=== PATIENT | male | born 1935 | race Caucasian/White ===

== ENCOUNTER 2016-09-08 11:24 | Emergency (ER) | payer OTHER ==
[~2016-09-08] VITALS: Ht 167.6 cm; Wt 113.7 kg
[~2016-09-08 11:24] MED LIST: AMIODARONE HCL200 MG PO; CALCITRIOL0.25 MCG PO; CARDIZEM CD120 MG PO; CARVEDILOL25 MG PO; CLOPIDOGREL75 MG PO; CO Q-10100 MG PO; COZAAR25 MG PO; DAILY VALUE1 EACH PO; DAILY VITE1 EAC1 PO; DIGOXIN125 MCG PO; ELIQUIS2.5 MG PO; ELIQUIS5 MG PO; FISH OIL 1,0001 EAC7 PO; FUROSEMIDE20 MG PO; HUMALOG100 UNIT/1 SC; HUMULIN 70100 UNIT/2 SC; KLOR-CON 1010 ME1 PO; LANTUS 3 M100 UNITS1 SC; LIVALO2 MG PO; LO-DOSE ASPIRIN81 M1 PO; LOSARTAN POTASS50 MG PO; NITROSTAT0.4 MG SL; OLIVE LEAF EXT250 MG PO; OMEGA 3 500 SO1 EACH PO; VISINE A.C300 DROP/1 BOTH EYES; VISINE15 ML BOTH EYES
[2016-09-08 12:25] LABS: HEMATOCRIT 41.9 % (38.0-50.0); MCH 32.2 PG (29.0-34.0); MCHC 33.7 G/DL (30.0-36.0); MCV 95.7 FL (86-99); MEAN PLAT.VOLUME 9.3 uM^3 (9.0-12.4); RBC DIS.WIDTH-CV 12.3 % (11.8-14.6); RBC DIS.WIDTH-SD 43.4 % (39-53); RED BLOOD COUNT 4.38 M/uL (4.00-5.50); WHITE BLOOD COUNT 5.6 K/uL (4.1-10.2)
[2016-09-08 12:30] LABS: PLATELET COUNT 118 K/uL (156-360)
[2016-09-08 12:42] LABS: CHLORIDE 110 mEq/L (99-109); POTASSIUM 4.3 mEq/L (3.7-5.4); SODIUM 141 mEq/L (136-147)
[2016-09-08 12:44] LABS: GLUCOSE 123 mg/dL (70-99)
[2016-09-08 12:45] LABS: ANION GAP 6 MEQ/L (2-14)
[2016-09-08 12:46] LABS: TOTAL BILIRUBIN 0.6 mg/dL (0.0-1.0)
[2016-09-08 12:47] LABS: ALKALINE PHOSPHATASE 43 IU/L (3-129)
[2016-09-08 12:48] LABS: GFR ESTIMATE (CALCULATED) 25 mL/min/
[2016-09-08 12:49] LABS: UREA NITROGEN (BUN) 46 mg/dL (9-23)
[2016-09-08 12:52] LABS: TROP-I INTERPRETATION NEGATIVE; TROPONIN-I 0.02 ng/mL (0.0-0.30)
[2016-09-08 13:09] LABS: ADD MIUA? YES; BILIRUBIN NEGATIVE; BLOOD NEGATIVE; COLOR YELLOW ((YELLOW)); GLUCOSE (STRIP) 50; KETONES NEGATIVE; LEUKOCYTES NEGATIVE; NITRITE NEGATIVE; PROTEIN (STRIP) >=500; SPECIFIC GRAVITY 1.022 (1.000-1.030); UROBILINOGEN 0.2 MG/DL (0.2-1.0)
[2016-09-08 13:13] LABS: BACTERIA RARE /HPF; EPITHELIAL CELLS NONE SEEN /HPF; HYALINE CASTS 0-5 /LPF; MUCUS TRACE /LPF; RED BLOOD CELLS 0-5 /HPF (0-5); WHITE BLOOD CELLS 0-5 /HPF (0-5)
[2016-09-08 14:15] VITALS: BP 148/67
== END 2016-09-08 14:16 | disposition home or self-care (01) ==
LOC: EME 11:24
PROVIDERS: Nurse Practitioner Family
DX: J06.9 Acute upper respiratory infection, unspecified (principal); R79.89 Other specified abnormal findings of blood chemistry; I10 Essential (primary) hypertension; E11.9 Type 2 diabetes mellitus without complications; Z79.4 Long term (current) use of insulin; E78.5 Hyperlipidemia, unspecified; I48.91 Unspecified atrial fibrillation; Z79.01 Long term (current) use of anticoagulants; I25.2 Old myocardial infarction; Z95.1 Presence of aortocoronary bypass graft; Z87.442 Personal history of urinary calculi; Z79.02 Long term (current) use of antithrombotics/antiplatelets
CPT/HCPCS: 71020; 80053; 81003; 83880; 84484; 85027; 93005; 99281; 99284

== ENCOUNTER 2017-07-14 03:50 | Emergency (ER) | payer OTHER ==
[~2017-07-14] VITALS: Ht 167.6 cm; Wt 115.4 kg
[2017-07-14 04:46] LABS: HEMATOCRIT 41.6 % (38.0-50.0); MCHC 33.7 G/DL (30.0-36.0); PLATELET COUNT 143 K/uL (156-360); RBC DIS.WIDTH-CV 11.9 % (11.8-14.6); RBC DIS.WIDTH-SD 41.9 % (39-53); RED BLOOD COUNT 4.38 M/uL (4.00-5.50); WHITE BLOOD COUNT 7.1 K/uL (4.1-10.2)
[2017-07-14 04:52] LABS: CHLORIDE 109 mEq/L (99-109); POTASSIUM 4.8 mEq/L (3.7-5.4); SODIUM 143 mEq/L (136-147)
[2017-07-14 04:54] LABS: GLUCOSE 173 mg/dL (70-99)
[2017-07-14 04:56] LABS: INTER. NORMALIZED RATIO 1.2
[2017-07-14 04:58] LABS: CREATININE 2.6 mg/dL (0.6-1.3); GFR ESTIMATE (CALCULATED) 25 mL/min/ (58.99-99999); PTT 31.5 SEC (25-37)
[2017-07-14 04:59] LABS: UREA NITROGEN (BUN) 52 mg/dL (9-23)
[2017-07-14 06:34] VITALS: BP 182/100
== END 2017-07-14 06:35 | disposition home or self-care (01) ==
LOC: EME 03:50
PROVIDERS: Nurse Practitioner Family
DX: L76.21 Postprocedural hemorrhage of skin and subcutaneous tissue following a dermatologic procedure (principal); Z85.828 Personal history of other malignant neoplasm of skin; I12.9 Hypertensive chronic kidney disease with stage 1 through stage 4 chronic kidney disease, or unspecified chronic kidney disease; N18.9 Chronic kidney disease, unspecified; I11.0 Hypertensive heart disease with heart failure; I50.9 Heart failure, unspecified; I25.10 Atherosclerotic heart disease of native coronary artery without angina pectoris; I25.2 Old myocardial infarction; E78.5 Hyperlipidemia, unspecified; E11.9 Type 2 diabetes mellitus without complications; Z87.442 Personal history of urinary calculi; Z95.1 Presence of aortocoronary bypass graft; Z79.4 Long term (current) use of insulin; Z79.82 Long term (current) use of aspirin; Z79.01 Long term (current) use of anticoagulants; Z88.8 Allergy status to other drugs, medicaments and biological substances
CPT/HCPCS: 80048; 85027; 85610; 85730; 99281; 99285